=== PATIENT | female | born 1965 | race Caucasian/White ===

== ENCOUNTER 2021-03-24 14:24 | Emergency (ER) | payer OTHER ==
[~2021-03-24] VITALS: Ht 165.1 cm; Wt 68.0 kg
[~2021-03-24 14:24] MED LIST: IBUPROFEN800 MG PO; NORCO 5-325 TA1 EACH PO; PENICILLIN V P500 MG PO
--- OUTSIDE RECORDS SUMMARY | 2021-03-24 14:30 | XMS ---
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 [facility] has no Care Guidelines for this patient. [facility] VISIT COUNT (12 MO.) 1 SEBASTIAN Johnson TOTAL 1 NOTE: Visits indicate total known visits. ED/C VISIT TRACKING (12 MO.) 03/24/2021 14:25 SEBASTIAN Isaac OR TYPE: Emergency COMPLAINT: - SYNCOPAL EPISODE INPATIENT VISIT TRACKING (12 MO.) No inpatient visits to display in this time frame [email or web address]
--- NOTE | 2021-03-25 15:19 | EKG ---
[facility] [address] [facility] [place], [place] [address] Signed Normal sinus rhythm Rightward axis Borderline ECG No previous ECGs available Confirmed by LOREE RODRIGUEZ MD ([id number] on 03/25/2021 3:19:37 PM Electronically Signed By: LOREE RODRIGUEZ MD 03/25/21 1519 PATIENT NAME: TOM SARGENT TOPHER Electrocardiogram DATE OF : 63 PHYSICIAN: LOREE RODRIGUEZ MD REPORT #: [id number] REPORT IS CONFIDENTIAL AND NOT TO BE RELEASED WITHOUT AUTHORIZATION
== END 2021-03-24 16:50 | disposition home or self-care (01) ==
LOC: ED 14:24
DX: U07.1 COVID-19 (principal)
CPT/HCPCS: 71045; 80053; 85025; 93005; 93010; 99284-25; J7040